=== PATIENT | male | born 1945 | race Caucasian/White ===

== ENCOUNTER 2018-07-31 07:53 | Observation (INO) | payer MEDICARE, BC ==
[~2018-07-31] VITALS: Ht 180.3 cm; Wt 106.4 kg
[2018-07-31] MEDS ORDERED: NITROGLYCERIN SINGLE TAB 0.4 MG SL PRN (08:30)
[2018-07-31] MEDS ORDERED: ASPIRIN 81 MG TABLET CHEW PO ONE (08:30)
[2018-07-31] MEDS ORDERED: ONDANSETRON 2MG/ML, 2ML IVPush ONE (08:30)
[2018-07-31] MEDS ORDERED: SODIUM CHLORIDE FLUSH 10ML SYR IVF ONE (08:30)
[2018-07-31] MEDS ORDERED: ASPI-496 PO (08:38)
[2018-07-31] MEDS ORDERED: LOSA25TA6 PO (08:39)
[2018-07-31 08:45] LABS: BASOPHILS # (AUTO) 0.05 x10^3/uL (0-0.1); BASOPHILS % (AUTO) 1 % (0-1); EOSINOPHILS # (AUTO) 0.17 x10^3/uL (0-0.4); EOSINOPHILS % (AUTO) 3 % (1-7); LYMPHOCYTES # (AUTO) 0.99 x10^3/uL (1-3.4); LYMPHOCYTES % (AUTO) 17 % (22-44); MD NO; MEAN CORPUSCULAR HEMOGLOBIN 30.4 pg (27.5-34.5); MEAN CORPUSCULAR HGB CONC 33.3 g/dL (33.2-36.2); MEAN CORPUSCULAR VOLUME 91.3 fL (81-97); MEAN PLATELET VOLUME 7.9 fL (7.4-10.4); MONOCYTES # (AUTO) 0.55 x10^3/uL (0.2-0.8); MONOCYTES % (AUTO) 9 % (2-9); NEUTROPHILS # (AUTO) 4.08 x10^3/uL (1.8-6.8); NEUTROPHILS % (AUTO) 70 % (42-75); PLATELET COUNT 187 x10^3/uL (130-400); RED BLOOD COUNT 5.06 x10^6/uL (4.38-5.82); RED CELL DISTRIBUTION WIDTH 14.7 % (9.4-14.8)
[2018-07-31 08:55] LABS: ANION GAP 5 mmol/L (5-15); CALCIUM 8.6 mg/dL (8.5-10.1); CHLORIDE 107 mmol/L (98-107); CREATININE 1.04 mg/dL (0.7-1.3)
[2018-07-31] MEDS ORDERED: ASPIRIN 81 MG TABLET CHEW ONE (08:56)
[2018-07-31 08:59] LABS: TROPONIN I < 0.015 ng/mL (0.000-0.045)
[2018-07-31] MEDS ORDERED: DICL100G19 TP (09:41)
[2018-07-31] MEDS ORDERED: LANS30CA PO (09:41)
[2018-07-31] MEDS ORDERED: DICL2SOL TD (09:41)
[2018-07-31] MEDS ORDERED: [UNRECOGNIZED DRUG - OTHER] (09:41)
[2018-07-31] MEDS ORDERED: TAMS0.4C2 PO (09:41)
[2018-07-31] MEDS ORDERED: ZINC50TA3 PO (09:41)
[2018-07-31] MEDS ORDERED: METF500T17 PO (09:41)
[2018-07-31] MEDS ORDERED: ALBU8.5H8 IH (09:41)
[2018-07-31] MEDS ORDERED: NITR0.4T SL (09:41)
[2018-07-31] MEDS ORDERED: MELA5TAB19 PO (09:41)
[2018-07-31] MEDS ORDERED: ROSU20TA PO (09:41)
[2018-07-31] MEDS ORDERED: FLUT9.9S NAS (09:41)
[2018-07-31] MEDS ORDERED: ALPH300C PO (09:41)
[2018-07-31] MEDS ORDERED: OMEG1CAP57 PO (09:41)
[2018-07-31] MEDS ORDERED: TURM1POW PO (09:41)
[2018-07-31] MEDS ORDERED: TRAZ-136 PO (09:41)
[2018-07-31] MEDS ORDERED: FINA5TAB4 PO (09:41)
[2018-07-31] MEDS ORDERED: VITA150T PO (09:41)
[2018-07-31] MEDS ORDERED: LEVO100T5 PO (09:41)
[2018-07-31] MEDS ORDERED: OLOP2.5D TP (09:41)
[2018-07-31] MEDS ORDERED: EUCA30SO NAS (09:41)
[2018-07-31] MEDS ORDERED: GLUC1TAB9 PO (09:41)
[2018-07-31] MEDS ORDERED: UBID100C41 PO (09:41)
[2018-07-31 10:44] VITALS: BP 132/78
[2018-07-31] MEDS ORDERED: ACETAMINOPHEN 325 MG TABLET PO PRN (12:00)
[2018-07-31] MEDS ORDERED: ENOXAPARIN 40 MG/0.4 ML SQ SCH (12:00)
[2018-07-31] MEDS ORDERED: NITROGLYCERIN 0.4 MG/SPRAY SL PRN (12:00)
[2018-07-31] MEDS ORDERED: NITROGLYCERIN 0.4 MG BOTTLE (25 TABS) SL PRN (12:00)
[2018-07-31 13:46] LABS: HEMOGLOBIN A1C 6.7 % (4.2-6.3)
[2018-07-31 15:24] LABS: TROPONIN I < 0.015 ng/mL (0.000-0.045)
[2018-07-31 15:37] VITALS: BP 148/75
[2018-07-31 20:47] LABS: TROPONIN I < 0.015 ng/mL (0.000-0.045)
[2018-07-31 20:59] VITALS: BP 142/76
[2018-08-01 00:21] VITALS: BP 141/82
[2018-08-01 04:54] LABS: BASOPHILS # (AUTO) 0.05 x10^3/uL (0-0.1); BASOPHILS % (AUTO) 1 % (0-1); EOSINOPHILS # (AUTO) 0.21 x10^3/uL (0-0.4); EOSINOPHILS % (AUTO) 3 % (1-7); LYMPHOCYTES # (AUTO) 1.39 x10^3/uL (1-3.4); LYMPHOCYTES % (AUTO) 20 % (22-44); MD NO; MEAN CORPUSCULAR HEMOGLOBIN 31.2 pg (27.5-34.5); MEAN CORPUSCULAR VOLUME 91.8 fL (81-97); MONOCYTES # (AUTO) 0.73 x10^3/uL (0.2-0.8); MONOCYTES % (AUTO) 11 % (2-9); NEUTROPHILS # (AUTO) 4.64 x10^3/uL (1.8-6.8); NEUTROPHILS % (AUTO) 66 % (42-75); PLATELET COUNT 180 x10^3/uL (130-400); RED BLOOD COUNT 4.76 x10^6/uL (4.38-5.82); RED CELL DISTRIBUTION WIDTH 14.6 % (9.4-14.8)
[2018-08-01 05:07] LABS: ALBUMIN 3.6 g/dL (3.4-5.0); ANION GAP 9 mmol/L (5-15); CALCIUM 8.8 mg/dL (8.5-10.1); CHLORIDE 106 mmol/L (98-107)
[2018-08-01 05:19] LABS: ALANINE AMINOTRANSFERASE 53 U/L (12-78); ALKALINE PHOSPHATASE 50 U/L (45-117); BILIRUBIN,TOTAL 0.7 mg/dL (0.2-1.0); CHOL/HDL RATIO 3.3; CHOLESTEROL, TOTAL 131 mg/dL (140-239); CREATININE 1.03 mg/dL (0.7-1.3); HDL CHOL % 31 % (26-37); HDL CHOLESTEROL (DIRECT) 40 mg/dL (40-60); LDL CHOLESTEROL,CALCULATED 50 mg/dL (54-169); LDL/HDL RATIO 1.3 (0.5-3.0); TOTAL PROTEIN 6.8 g/dL (6.4-8.2); TRIGLYCERIDES 206 mg/dL (50-200); VLDL CHOLESTEROL 41 mg/dL (0-25)
[2018-08-01] MEDS ORDERED: ASPIRIN 325 MG TABLET EC PO SCH (06:00)
[2018-08-01 07:05] VITALS: BP 142/81
[2018-08-01 13:35] VITALS: BP 142/78
[2018-08-01] MEDS ORDERED: NITR0.4T SL (13:36)
[2018-08-01] MEDS ORDERED: METO25TA35 PO (13:36)
[2018-08-01] MEDS ORDERED: METOPROLOL TARTRATE 25 MG TABLET PO SCH (18:00)
[2018-08-01] MEDS ORDERED: MELATONIN 5 MG TABLET PO SCH (21:00)
[2018-08-01] MEDS ORDERED: ATORVASTATIN 40 MG TABLET PO SCH (21:00)
[2018-08-02] MEDS ORDERED: LEVOTHYROXINE 100 MCG TABLET PO SCH (06:00)
[2018-08-02] MEDS ORDERED: PANTOPROZOLE 40MG TABLET PO SCH (07:30)
[2018-08-02] MEDS ORDERED: OMEGA-3/FISH OIL CAPSULE PO SCH (09:00)
[2018-08-02] MEDS ORDERED: FINASTERIDE 5 MG TABLET PO SCH (09:00)
[2018-08-02] MEDS ORDERED: TAMSULOSIN 0.4 MG CAP.ER.24H PO SCH (09:00)
== END 2018-08-01 15:32 | disposition home or self-care (01) ==
LOC: ED 09:33 → INTOOBSV 09:34 → EDIP 09:34 → ED 09:37 → 5SO 10:43 → DCLOUNGE 08-01 15:23
PROVIDERS: ADMIT Internal Medicine; ATTEND Internal Medicine
DX: R07.9 Chest pain, unspecified (principal); I10 Essential (primary) hypertension; E78.5 Hyperlipidemia, unspecified; E03.9 Hypothyroidism, unspecified; I25.10 Atherosclerotic heart disease of native coronary artery without angina pectoris; I25.2 Old myocardial infarction; Z87.891 Personal history of nicotine dependence; Z95.5 Presence of coronary angioplasty implant and graft
CPT/HCPCS: 36415; 71045; 78452; 80048; 80053; 80061; 82040; 83036; 83735; 83880; 84100; 84443; 84484; 85025; 93005; 93017; 96372; 99284; A9502; C9898; G0378; J1650